=== PATIENT | male | born 1955 | race Caucasian/White ===

== ENCOUNTER → 2016-07-18 | Day surgery (SDC) | payer OTHER ==
[~2016-07-18] MED LIST: ACET500C PO; ADVI200C5 PO; ALEV220T14 PO; AMIO200 PO; ASPI81TA81 PO; ATOR40TA16 PO; BUPIVACAINE HCL PF 0.75% 30 ML VIAL ONE; CALTTAB PO; COLA100C3 PO; CORD200T PO; COUM5TAB PO; CYAN1DRO PO/SL; DOCU1CAP39 PO; DORZ1SOL2 EACH EYE; FLUMAZENIL 0.5 MG/5 ML VIAL IV ONE; GLUC500T4 PO; GUAI400T8 PO; LACT4500 CHEW; LACTATED RINGER'S 1000 ML INJ 1,000 ML ONE; LATA0.002 EACH EYE; LIDOCAINE 1.5%/EPINEPHrine 1:200,000 PF SOLN 30 ML AMP ONE; LORA10TA PO; MIDAZOLAM HCL 5 MG/5 ML VIAL ONE; MULTTAB67 PO; OMEGCAP PO; ONDANSETRON HCL 4 MG/2 ML VIAL IV PUSH ONE; PROPOFOL 200 MG/20 ML AMP IV ONE; SUDO60TA2 PO; TAMS5CAP PO; TIMO1SOL6 EACH EYE; TRAV0.00 EACH EYE; VITA100064 PO; [UNRECOGNIZED DRUG - CODE] PO; [UNRECOGNIZED DRUG - CODE] PO; ceFAZolin INJ 1,000 MG VIAL ONE
--- NOTE | 2016-07-18 16:59 | TN ---
cc: CARROLL MIDDLETON MD DATE OF SURGERY: 07/18/2016 PREOPERATIVE DIAGNOSIS: Right shoulder chronic rotator cuff tear, chronic tear long head of the biceps. POSTOPERATIVE DIAGNOSIS: Right shoulder chronic rotator cuff tear, chronic tear long head of the biceps. OPERATIVE PROCEDURE PERFORMED: Right shoulder repair, chronic rotator cuff tear with subacromial decompression including anterior acromioplasty and coracoacromial ligament release, open excision distal clavicle biceps tenodesis. SURGEON: Carroll Mdidleton MD. DESCRIPTION OF THE PROCEDURE IN DETAIL: Informed consent was obtained. The patient was taken to the operating room and placed in the supine position on the operating table. He was administered a general anesthesia via Dr. Johns of the anesthesia department. At that time, the right shoulder was prepped with Betadine soap followed by Betadine paint and draping commenced with sterile down sheets, sterile towels about the shoulder. A stockinette was applied to the hand and forearm and this was wrapped with a Coban. Split sheets were applied. The patient given was given a gram of Ancef prior to the initiation of the operative procedure. A time-out was held and confirmed. At that time, an anterolateral incision was made over the patient's shoulder beginning proximal to the AC joint and carried over to the acromion and a deltoid splitting incision was performed. A large rotator cuff tear was identified, which was retracted. The periosteum over the AC joint was divided longitudinally and dissected off the distal clavicle anteriorly and posteriorly. Utilizing an oscillating saw, the distal one-quarter inch of clavicle was removed. An anterior acromioplasty was performed utilizing the rongeurs and the rasp. The tear in the rotator cuff was further identified. There was an anterior limb of the tear, a straight medial limb and a posterior limb. All limbs were freed up. Utilizing the Arthrex Scorpion, two sutures were placed in the front flap, two in the posterior flap. Utilizing a 4.5 Arthrex SwiveLock anchor, the posterior portion was brought forward and utilizing a second anchor, the anterior portion was brought backwards. Two additional sutures were placed in the posterior limb and these were brought forward. Utilizing #2 FiberWire sutures, the remaining rent in the rotator cuff was closed and it appeared that the repair was intact. At that time, an incision was made down the anterolateral aspect of the patient's arm. The biceps muscle was identified however the long head was not visible and as further dissection was performed, the short head was identified but not the long head of the biceps. This could not be identified either proximally or distally. A portion of the biceps however where the tendon would normally attach was sutured with FiberWire anchors and freed up and the biceps contour was reapproximated. Utilizing an 8 mm reamer, a hole was placed in the proximal shaft of the humerus. The suture was placed through the biceps muscle at the tendon attachment and brought through the 8 mm screw and 8 mm biceps tendon tenodesis screw from the [employer] was utilized. Once this was tightened into position, the repair appeared solid and the contour of the biceps had been restored. At that time, the wounds were irrigated and closed with 2-0 Vicryl, 3-0 chromic and 4-0 nylon interrupted stitches utilizing the Allgower stitch. Steri-Strips, 4 x 4's, ABD, tape was applied to the upper wound and Sof-Rol and ELÍAS wrap were applied to the patient's arm to the hand. The patient tolerated the procedure well and was then taken to the recovery room in stable condition. At the completion of the procedure, the sponge count, instrument count and needle count were correct. The estimated blood was 500 cc. MD LEO Astorga/MARLEN /4:20 PM /4:43 PM
== END | disposition home or self-care (01) ==
LOC: ESDC 10:57
PROVIDERS: ATTEND Orthopaedic Surgery
DX: M75.101 Unspecified rotator cuff tear or rupture of right shoulder, not specified as traumatic (principal); S46.211A Strain of muscle, fascia and tendon of other parts of biceps, right arm, initial encounter
CPT/HCPCS: 00450; 01610; 01716; 01991; 23120; 23412; 23430; 64417; J0690; J2250; J2405; J7120; C1713